=== PATIENT | male | born 1945 | race Caucasian/White ===

== ENCOUNTER 2019-08-17 04:45 | Inpatient (IN) ==
[2019-08-10 17:56] LABS: Basophils # (Auto) 0.01 K/mcL (0.00-0.30); Basophils % (Auto) 0.1 % (0.0-2.0); Eosinophils # (Auto) 0.14 K/mcL (0.00-0.70); Eosinophils % (Auto) 1.5 % (0.0-7.0); Granulocytes % (Auto) 80.1 % (38.0-78.0); Hematocrit 42.7 % (40.1-51.0); Hemoglobin 13.6 g/dL (13.7-17.5); Lymphocytes # (Auto) 0.66 K/mcL (1.50-4.80); Lymphocytes % (Auto) 6.8 % (15.5-49.0); Mean Cell Volume 88.8 fL (80.0-100.0); Mean Corpuscular HGB Conc 31.9 g/dL (31.0-36.0); Mean Platelet Volume 10.7 fL (7.4-10.4); Monocytes # (Auto) 1.11 K/mcL (0.10-0.90); Monocytes % (Auto) 11.5 % (1.0-12.0); Platelet Count 201 K/mcL (140-440); RBC 4.81 M/mcL (4.63-6.08); WBC 9.7 K/mcL (4.50-11.00)
[2019-08-10 18:08] LABS: Estimated Average Glucose(eAG) 108 mg/dL; Hemoglobin A1C 5.4 % HGB (4.0-6.0)
[2019-08-10 18:10] LABS: ALT/SGPT 17 U/l (0-40); AST/SGOT 12 U/l (0-37); Albumin/Globulin Ratio 1.2 (1.0-2.3); Alkaline Phosphatase 80 U/L (39-117); Bilirubin,Total 0.3 mg/dL (0.0-1.0); Blood Urea Nitrogen 23 mg/dl (8-23); Calcium 9.6 mg/dl (8.6-10.4); Carbon Dioxide 23 mmol/L (22-30); Chloride 99 mmol/L (96-108); Globulin 3.3 gm/dL (2.2-3.7); Glomerular Filtration Rate 93; Glucose 116 mg/dL (70-105)
[2019-08-17] MEDS ORDERED: SCOPOLAMINE 1 PATCH PATCH TOPICAL PRN (05:00)
[2019-08-17] MEDS ORDERED: IPRATROPIUM/ALBUTEROL 3 ML AMPUL.NEB NEB PRN ×2 (05:00→08:49)
[2019-08-17] MEDS ORDERED: ceFAZolin 2 GM in DEXTROSE 5% IN WATER 50 ML IV SCH (06:00)
[2019-08-17] MEDS ORDERED: MIDAZOLAM 5 MG/5 ML VIAL IV ONE (07:36)
[2019-08-17] MEDS ORDERED: fentaNYL 100 MCG/2 ML VIAL IV ONE (07:36)
[2019-08-17] MEDS ORDERED: PROPOFOL 200 MG/20 ML VIAL IV ONE (07:36)
[2019-08-17] MEDS ORDERED: GLYCOPYRROLATE 0.2 MG/ML VIAL IV ONE (07:36)
[2019-08-17] MEDS ORDERED: LIDOCAINE HCL/PF 100 MG/5 ML SYRINGE IV ONE (07:36)
[2019-08-17] MEDS ORDERED: ONDANSETRON 4 MG/2 ML VIAL IV ONE (07:36)
[2019-08-17] MEDS ORDERED: DEXAMETHASONE 10 MG/ML VIAL IV ONE (07:36)
[2019-08-17] MEDS ORDERED: METOPROLOL TARTRATE 5 MG/5 ML VIAL IV ONE (07:36)
[2019-08-17] MEDS ORDERED: KETAMINE 100 MG/ML ML IV ONE (07:36)
[2019-08-17] MEDS ORDERED: METHYLENE BLUE 50 MG/10 ML AMPUL INJ ONE (08:04)
[2019-08-17] MEDS ORDERED: NALOXONE HCL 0.4 MG/ML VIAL IV PRN (08:49)
[2019-08-17] MEDS ORDERED: fentaNYL 100 MCG/2 ML VIAL IV PRN (08:49)
[2019-08-17] MEDS ORDERED: FLUMAZENIL 0.1 MG/ML ML IV PRN (08:49)
[2019-08-17] MEDS ORDERED: LACTATED RINGERS 250 ML IV PRN (08:49)
[2019-08-17] MEDS ORDERED: LACTATED RINGERS 1,000 ML IV SCH (09:00)
--- NOTE | 2019-08-17 09:08 | Brief Operative Note ---
Date of procedure: 08/17/19 Pre-op diagnosis: Sacral pressure ulcer, indeterminate Post-op diagnosis: other (Grade IV sacral pressure ulcer) Procedure: Excision of sacral ulcer with partial ostectomy, bilateral gluteus muscle flap closure Grafts/Implants: No Anesthesia: conscious sedation Findings: Ulcer goes all the way down to bone. No pus. Distal sacral bone spongy Complications: none Surgeon: Shubham Ernst Specimens Removed/Pathology: other (Post irrigation culture of sacral bone to microbiology) Condition: stable Disposition: PACU
[2019-08-17] MEDS ORDERED: BACITRACIN TOPICAL OINT 15 GM TUBE TOPICAL ONE (09:12)
--- NOTE | 2019-08-17 09:42 | Internal Medicine Consult Note ---
Medical - CN: HPI - Data of Consult Primary Care Provider: Saleem Bedoya - Consult Narrative Reason for consult: Postoperative management of medical issues History of present illness: Mr. Abdul is a 74 year old very pleasant gentleman with a history of T4 paraplegia since 2016 and resultant sacral decubitus ulcer that he has been battling for the last 4 years with multiple hospitalizations/surgeries and extending up to sacrum with resultant osteomyelitis. He also underwent left colostomy, suprapubic catheter placement. Additionall patient carries history of insulin-dependent diabetes, gout, HTN, prostate cancer. Patient today underwent sacral ulcer excision with partial ostectomy and bilateral gluteus muscle flap closure by Dr. Ernst. Postoperatively patient was admitted to enable placement to the [facility] for continued postoperative wound care Hospitalist service was consulted for management of pre-existing medical issues while patient will be undergoing postoperative care under surgery. At the time evaluation patient is alert and oriented. He was able to answer most of the question and endorse a complex history as above. He denies lightheadedness dizziness headache, fever. He has no sensations below the waist. He lives with his . Denies alcohol or smoking Review of systems 10 point review system was attempted and is negative except for ones discussed above CC: Shubham Ernst Medical - CN: [facility] Medical history: Paraplegic spinal paralysis (Chronic ~2016) Renal calculi (Chronic) History of prostate cancer (Chronic) IDDM (insulin dependent diabetes mellitus) (Chronic) Pressure ulcer of coccygeal region (Chronic) Prostate cancer (Chronic) Vertigo (Chronic) Type II diabetes mellitus (Chronic) Osteomyelitis (Chronic) Surgical History History of cardiac pacemaker in situ (Chronic) History of colostomy (Chronic) History of lithotripsy (Chronic) Renal History of lumbar fusion (Chronic) History of prostatectomy (Chronic) Suprapubic Family History Other No pertinent family history Social History marital status: smoking status: Never smoker alcohol intake frequency: a few times a week Medical - CN: Meds Home Medications Medication Instructions Recorded Confirmed Type baclofen 10 mg tablet 5 mg PO TID tab 04/07/19 08/17/19 History magnesium oxide 400 mg PO BID 04/07/19 08/17/19 History metformin 500 mg tablet 1,000 mg PO BID tab 04/07/19 08/17/19 History omeprazole 20 mg capsule,delayed 20 mg PO QDAY 04/07/19 08/17/19 History release solifenacin 5 mg tablet 5 mg PO QDAY 04/07/19 08/17/19 History acetaminophen 325 mg capsule 650 mg PO QID PRN 04/09/19 08/17/19 History apixaban 5 mg tablet 5 mg PO BID tab 04/09/19 08/17/19 History colchicine 0.6 mg tablet 0.6 mg PO QDAY tab 04/09/19 08/17/19 History digoxin 125 mcg (0.125 mg) tablet 125 mcg PO QDAY tab 04/09/19 08/17/19 History duloxetine 60 mg capsule,delayed 60 mg PO QDAY cap 04/09/19 08/17/19 History release hydrocodone 10 mg-acetaminophen 1 tab PO Q4-6H PRN 04/09/19 08/17/19 History 325 mg tablet meclizine 25 mg tablet 12.5 - 25 mg PO QDAY PRN 04/09/19 08/17/19 History pgvviecmewic-gbnlyqto-dzobfx 1 tab PO QDAY 04/09/19 08/17/19 History potassium chloride 20 mEq 20 meq PO BID tab 04/09/19 08/17/19 History tablet,extended release(part/cryst) tramadol 50 mg tablet 50 - 100 mg PO Q8HP PRN 04/09/19 08/17/19 History Calcium Carbonate/Simethicone 1 tab PO PRN PRN 08/10/19 08/17/19 History [[place] Heartburn+Gas] Citric AC/Gluconolact/Mag Carb 30 ml IR UD 08/10/19 08/17/19 History [Renacidin Irrigation Solution] Diclofenac Sodium [Voltaren] 1 gm TOPICAL TIDP PRN 08/10/19 08/17/19 History Econazole Nitrate 1 gm TP BID 08/10/19 08/17/19 History Hydrochlorothiazide [Oretic] 12.5 mg PO DAILY 08/10/19 08/17/19 History Hydrocortisone Crm 2.5% [Hc Crm 1 dose TOPICAL BID 08/10/19 08/17/19 History 2.5%] Ondansetron [Zofran ODT] 8 mg SL Q8HP PRN 08/10/19 08/17/19 History Simethicone [Gas-X] 125 mg PO TIDP PRN 08/10/19 08/17/19 History Allergies Allergy/AdvReac Type Severity Reaction Status Date / Time No Known Drug Allergies Allergy Unverified 05/25/19 15:21 Medical - CN: Exam - Constitutional Vitals: Temp Pulse Resp BP Pulse Ox 98.9 F 93 H 15 94/68 99 08/17/19 09:28 08/17/19 09:28 08/17/19 09:28 08/17/19 09:28 08/17/19 09:28 General appearance: no acute distress Exam: Head normocephalic Oral cavity dry Alert and oriented Eye-movement symmetrical Nonlabored breathing Abdomen colostomy left lower quadrant Suprapubic catheter Lower extremity disuse atrophy No sinus clubbing or joint swelling Skin no suspicious lesion Psych alert cooperative Neuro T4 paraplegia no acute changes Medical - CN: Result - Labs CBC & Chem 7: 08/18/19 05:57 08/18/19 05:57 Medical - CN: A/P (1) Pressure ulcer of coccygeal region Status: Chronic Assessment and plan: * Status post sacral ulcer excision/partial ostectomy/bilateral gluteal muscle flap closure by surgery. Postoperative care/pain management as per surgery * Sacral osteomyelitis status post ostectomy. Initiate oral Levaquin, de- escalation based on wound culture results. Hospitalist consult for management of medical issues as below * T4 paraplegia status post colostomy/suprapubic catheter. Continue daily care/offloading. * Insulin-dependent diabetes continue basal panel insulin/metformin/CC diet * History of gout continue colchicine * Hypertension continue thiazide * GERD continue PPI * Chronic pain and spasm continue baclofen. Plan * Offloading and postoperative care as per surgery * Pre-existing medical condition management home meds * oral Levaquin for 7 days * PT OT nutrition support * Discharge planning-SNF as per surgery for continued postoperative wound care
[2019-08-17] MEDS ORDERED: ACETAMINOPHEN 325 MG TABLET PO PRN (09:46)
[2019-08-17] MEDS ORDERED: traMADol 50 MG TABLET PO PRN (09:46)
[2019-08-17] MEDS ORDERED: ONDANSETRON 4 MG ODT TABLET SL PRN (09:46)
[2019-08-17] MEDS ORDERED: HYDROcodone/APAP 10/325MG TABLET PO PRN (09:46)
[2019-08-17 11:29] LABS: Hematocrit 40.6 % (40.1-51.0); Hemoglobin 12.8 g/dL (13.7-17.5); Mean Cell Volume 88.8 fL (80.0-100.0); Mean Corpuscular HGB Conc 31.5 g/dL (31.0-36.0); Mean Platelet Volume 10.5 fL (7.4-10.4); Platelet Count 222 K/mcL (140-440); RBC 4.57 M/mcL (4.63-6.08); Red Cell Distribution Width 15.9 % (11.5-14.5); WBC 10.3 K/mcL (4.50-11.00)
[2019-08-17 11:48] LABS: ALT/SGPT 20 U/l (0-40); AST/SGOT 15 U/l (0-37); Albumin 3.5 gm/dL (3.2-5.2); Alkaline Phosphatase 63 U/L (39-117); Bilirubin,Direct < 0.2 mg/dL (0.0-0.3); Bilirubin,Total 0.2 mg/dL (0.0-1.0); Blood Urea Nitrogen 17 mg/dl (8-23); Calcium 9.4 mg/dl (8.6-10.4); Carbon Dioxide 23 mmol/L (22-30); Chloride 103 mmol/L (96-108); Globulin 3.5 gm/dL (2.2-3.7); Glomerular Filtration Rate 99; Glucose 123 mg/dL (70-105); Lactate Dehydrogenase 152 U/L (94-250); Phosphorous 2.6 mg/dL (2.7-4.5); Triglycerides 103 mg/dl (<150); Uric Acid 5.1 mg/dL (2.5-8.0)
[2019-08-17 11:56] LABS: Band Neutrophils % 3 % (0-10); Eosinophils % (Manual) 2 % (0-7); Lymphocytes % 4 % (15-49); Monocytes % (Manual) 1 % (1-12); Platelet Estimate NORMAL (NORMAL); RBC Morphology NORMAL (NORMAL); Segmented Neutrophils % 90 % (38-78)
[2019-08-17] MEDS: LEVOFLOXACIN 750 MG TABLET PO SCH (13:31)
[2019-08-17] MEDS: BACLOFEN 10 MG TABLET PO SCH ×2 (16:04→20:45)
[2019-08-17] MEDS: DIGOXIN 125 MCG TABLET PO SCH (16:05)
[2019-08-17 17:11] LABS: Appearance,Urine CLOUDY; Bacteria,Urine MANY /hpf (0); Bilirubin,Urine NEG (NEG); Color,Urine YELLOW; Culture Indicated,Urine YES; Glucose,Urine (UA) 50 mg/dL (NEG); Ketones,Urine NEG (NEG); Leukocyte Esterase,Urine 500 /uL (NEG); Mucus,Urine MOD /hpf (0); Nitrate,Urine NEG (NEG); Protein,Urine NEG (NEG); Specific Gravity,Urine 1.018 (1.000-1.035); Urine Amorphous Crystals FEW /hpf (0); Urine Blood NEG mg/dL (<0.03); Urine RBC 2 /hpf (0-1); Urine Squamous Epithelial Cell 2 /hpf (0-4); Urine WBC 37 /hpf (0-4); Urobilinogen,Urine NEG (NEG)
[2019-08-17] MEDS: metFORMIN 500 MG TABLET PO SCH (18:05)
[2019-08-17] MEDS: POTASSIUM CHLORIDE 20 MEQ TABLET PO SCH (18:06)
[2019-08-17] MEDS: BACITRACIN TOPICAL OINT 15 GM TUBE TOPICAL SCH (20:45)
[2019-08-17] MEDS: MAGNESIUM OXIDE 400 MG TABLET PO SCH (20:45)
[2019-08-18 07:07] LABS: Hematocrit 36.5 % (40.1-51.0); Hemoglobin 11.5 g/dL (13.7-17.5); Mean Cell Volume 89.2 fL (80.0-100.0); Mean Corpuscular HGB Conc 31.5 g/dL (31.0-36.0); Platelet Count 246 K/mcL (140-440); RBC 4.09 M/mcL (4.63-6.08); Red Cell Distribution Width 15.8 % (11.5-14.5); WBC 10.9 K/mcL (4.50-11.00)
[2019-08-18 07:32] LABS: Bilirubin,Direct < 0.2 mg/dL (0.0-0.3); Chloride 103 mmol/L (96-108)
[2019-08-18 07:33] LABS: ALT/SGPT 15 U/l (0-40); AST/SGOT 15 U/l (0-37); Albumin 3.2 gm/dL (3.2-5.2); Alkaline Phosphatase 59 U/L (39-117); Bilirubin,Total 0.3 mg/dL (0.0-1.0); Blood Urea Nitrogen 17 mg/dl (8-23); Calcium 8.7 mg/dl (8.6-10.4); Carbon Dioxide 20 mmol/L (22-30); Globulin 3.2 gm/dL (2.2-3.7); Glomerular Filtration Rate 99; Glucose 147 mg/dL (70-105); Lactate Dehydrogenase 167 U/L (94-250); Phosphorous 2.2 mg/dL (2.7-4.5); Triglycerides 74 mg/dl (<150); Uric Acid 5.7 mg/dL (2.5-8.0)
[2019-08-18] MEDS: OMEPRAZOLE 20 MG CAPSULE PO SCH (07:34)
[2019-08-18] MEDS: metFORMIN 500 MG TABLET PO SCH ×2 (07:34→17:04)
[2019-08-18] MEDS: POTASSIUM CHLORIDE 20 MEQ TABLET PO SCH ×2 (07:34→17:04)
[2019-08-18] MEDS: MAGNESIUM OXIDE 400 MG TABLET PO SCH ×2 (08:41→20:24)
[2019-08-18] MEDS: COLCHICINE 0.6 MG TABLET PO SCH (08:41)
[2019-08-18] MEDS: BACLOFEN 10 MG TABLET PO SCH ×3 (08:42→20:24)
[2019-08-18] MEDS: HYDROCHLOROTHIAZIDE 12.5 MG CAPSULE PO SCH (08:42)
[2019-08-18] MEDS: LEVOFLOXACIN 750 MG TABLET PO SCH (08:42)
[2019-08-18] MEDS: DULoxetine 30 MG CAPSULE PO SCH (08:42)
[2019-08-18] MEDS: BACITRACIN TOPICAL OINT 15 GM TUBE TOPICAL SCH ×2 (08:45→20:25)
[2019-08-18 08:47] LABS: Eosinophils % (Manual) 1 % (0-7); Lymphocytes % 9 % (15-49); Monocytes % (Manual) 3 % (1-12); Platelet Estimate NORMAL (NORMAL); RBC Morphology NORMAL (NORMAL); Segmented Neutrophils % 87 % (38-78)
--- NOTE | 2019-08-18 09:00 | Operative Note ---
DATE OF OPERATION: 08/17/2019 PREOPERATIVE DIAGNOSIS: Sacral ulcer, indeterminate depth. POSTOPERATIVE DIAGNOSIS: Grade IV sacral pressure ulcer. PROCEDURE PERFORMED: 1. Excision of sacral pressure ulcer with partial ostectomy of distal and posterior sacrum. 2. Bilateral gluteus giovanni muscle flap closure. SURGEON: Shubham Ernst M.D. CLINICAL DOCUMENT IMPROVEMENT EDUCATOR: None. ANESTHESIA: Conscious sedation. COMPLICATIONS: None. DRAINS: Two 7 mm CANDY drains were placed. SPECIMENS: A post-irrigation culture was sent to Microbiology. INDICATIONS: The patient is a 74-year-old male with stable medical history. He has been a T4 paraplegic for about 4 years now. He developed a sacral pressure sore, in addition to a couple others which have healed. The sacral ulcer has failed nonoperative management and operative treatment to close the defect is currently indicated. DESCRIPTION OF PROCEDURE: With the patient identified in the holding area, the planned procedure was discussed with him. He wished to proceed and consented freely. Two grams of Ancef were given IV. The patient was brought into the operating room. He was placed prone on the operating table with all of his pressure points adequately covered. The patient's entire buttock and perineal area was then prepped and draped out sterilely. The ulcer was then outlined. The ulcer itself measured about 7 x 3.5 cm with a depth of about 3.5 cm. The entire depth of the ulcer was painted blue with blue dye. The ulcer was then excised using a #15 blade to incise around the entire ulcer to present with fresh, healthy skin. Once through the skin, electrocautery was used for dissection. It was carried out down to the sacral bone. The bone was then debrided using a rongeur and uterine curettes. The very distal sacral bone was somewhat soft and poor quality. The bone was debrided back until healthy, hard, firm bone was reached. The wounds were then irrigated out with about 3 liters of warm sterile lactated Ringer's solution. A clean rongeur was then used to obtain a post-irrigation culture, and this was sent to Microbiology. Having been content with the wound debridement, the bone was exposed at the base. Muscle flap would be in the patient's best interest. A unilateral gluteus muscle flap would reach just over residential. Bilateral flaps would be necessary to exact adequate closure of the wound. The muscle was then from the skin posteriorly and from the bone anteriorly. The muscle was of good quality. It had excellent bleeding and contraction and appeared healthy. The left-sided muscle was advanced first. Once just over the midline, the right side. muscle was advanced. Electrocautery was used for hemostasis and for the dissection. Having been content with the procedure, two 7 mm CANDY drains were placed. One going into the deep wound and then one between the muscle and the skin. The drains were secured with 3-0 nylon. The muscle was closed with interrupted sutures of 2-0 Vicryl. The depth of the suture was secured to the deeper soft tissue to help close off the defect. Once the muscle was approximated, the skin was then closed over the second drain with interrupted 0 Monocryl sutures to approximate the dermis and the deep fascia. The skin was then finally closed with horizontal mattress sutures of 3-0 nylon with multiple surgical clips. The total length of closure was about 8.5 cm. The wounds were then washed free of debris. Bacitracin was placed over the incision and around the drains. Drain sponges were used as well. The patient was then washed free and rolled directly onto his air bed. He was taken to the recovery room in stable condition. There were no complications. The sponge and needle counts were correct. The patient tolerated the procedure well. MALLORY:[email or web address] Job ID: [id number] Doc ID: [id number] Shubham Ernst MD
--- NOTE | 2019-08-18 09:58 | Internal Med Progress Note ---
Medical - PN: Subj Patient information: Note initiated : 08/18/19 at 9:55 am Service Date, if different from initiated Date: [] Patient: Omer Abdul 74 y/o M admitted on 08/17/19 for Excision and Flap Closure of Sacral Pressure Ulcer. Chief Complaint: [] Interval history: Mr. Abdul is a 74 year old very pleasant gentleman with a history of T4 paraplegia since 2016 and resultant sacral decubitus ulcer that he has been battling for the last 4 years with multiple hospitalizations/surgeries and extending up to sacrum with resultant osteomyelitis. He also underwent left colostomy, suprapubic catheter placement. Additionall patient carries history of insulin-dependent diabetes, gout, HTN, prostate cancer. Patient today underwent sacral ulcer excision with partial ostectomy and bilateral gluteus muscle flap closure by Dr. Ernst. Postoperatively patient was admitted to enable placement to the halfway home for continued postoperative wound care Hospitalist service was consulted for management of pre-existing medical issues while patient will be undergoing postoperative care under surgery. At the time evaluation patient is alert and oriented. He was able to answer most of the question and endorse a complex history as above. He denies lightheadedness dizziness headache, fever. He has no sensations below the waist. He lives with his . Denies alcohol or smoking 08/17-patient had a rough mood today. Unhappy with the nursing care. Await SNF placement. Discussed plan of care including antibiotic for 7 days. Await culture results. No overnight fever chills. Tolerating diet - Constitutional Vitals: Vital Signs Temp Pulse Resp BP Pulse Ox 97.9 F 73 18 114/79 99 08/18/19 07:37 08/18/19 07:37 08/18/19 07:52 08/18/19 07:37 08/18/19 07:37 Period Temp Pulse Resp BP Sys/Zimmerman Pulse Ox Last 24 Hr 97.4 F-98.1 F 65-112 93-125/65-82 92-99 Intake and Output 08/17/19 08/18/19 08/18/19 21:59 05:59 13:59 Intake Total 900 725 Output Total 700 1550 Balance 200 -825 Weight 194 lb 9.6 oz Intake & Output: Intake & Output 08/17/19 08/18/19 08/18/19 21:59 05:59 13:59 Intake Total 900 725 Output Total 700 1550 Balance 200 -825 Weight 194 lb 9.6 oz Intake: IV 50 Ancef 2 gm In Dextrose 5% in 50 Water 50 ml @ 100 mls/hr IV PREOP LEIGH Rx#:[id number] Oral 900 675 Output: Drainage 25 CANDY #1 15 CANDY #2 10 Urine Catheter Amount 700 1525 Other: Meal Dinner Percent of Meal Consumed 75% Feeding Ability Independent Urine Appearance Cloudy Cloudy Suprapubic Cloudy Cloudy Urine Color Dark Yellow Bright Yellow Suprapubic Bright Yellow Bright Yellow Urine Odor Normal Suprapubic Normal Stool Size Small Stool Color Brown Stool Consistency Formed General appearance: no acute distress Exam: Alert oriented Anxious Nonlabored breathing Atrial fibrillation Colostomy and suprapubic catheter Medical - PN: Obj Da - Labs CBC & Chem 7: 08/18/19 05:57 08/18/19 05:57 Labs: Abnormal Lab Results 08/18/19 08/18/19 08/17/19 05:57 05:57 16:12 RBC 4.09 L Hgb 11.5 L Hct 36.5 L RDW 15.8 H MPV Seg Neutrophils % 87 H Lymphocytes % 9 L Carbon Dioxide 20 L Creatinine 0.6 L Glucose 147 H Phosphorus 2.2 L Urine Glucose (UA) 50 A Ur Leukocyte Esterase 500 A Urine RBC 2 H Urine WBC 37 H Amorphous Crystals Few A Urine Bacteria Many A 08/17/19 08/17/19 10:00 10:00 RBC 4.57 L Hgb 12.8 L Hct RDW 15.9 H MPV 10.5 H Seg Neutrophils % 90 H Lymphocytes % 4 L Carbon Dioxide Creatinine 0.6 L Glucose 123 H Phosphorus 2.6 L Urine Glucose (UA) Ur Leukocyte Esterase Urine RBC Urine WBC Amorphous Crystals Urine Bacteria Meds: Medications Acetaminophen (Tylenol) 650 mg PO QIDP PRN PRN Reason: Pain Hydrocodone Bitart/Acetaminophen ([place] 10/325mg) 1 tab PO Q4-6HP PRN; Protocol PRN Reason: Pain Apixaban (Eliquis) 5 mg PO BID [facility] Bacitracin (Bacitracin Topical Oint) 1 dose TOPICAL BID [facility] Last Admin: 08/18/19 08:45 Dose: 1 dose Documented by: Baclofen (Lioresal) 5 mg PO TID [facility] Last Admin: 08/18/19 08:42 Dose: 5 mg Documented by: Colchicine (Colcrys) 0.6 mg PO DAILY [facility] Last Admin: 08/18/19 08:41 Dose: 0.6 mg Documented by: Digoxin (Lanoxin) 125 mcg PO DAILY@1400 [facility] Last Admin: 08/17/19 16:05 Dose: 125 mcg Documented by: Duloxetine HCl (Cymbalta) 60 mg PO DAILY [facility] Last Admin: 08/18/19 08:42 Dose: 60 mg Documented by: Hydrochlorothiazide (Oretic) 12.5 mg PO DAILY [facility] Last Admin: 08/18/19 08:42 Dose: 12.5 mg Documented by: Levofloxacin (Levaquin) 750 mg PO DAILY [facility]; Protocol Last Admin: 08/18/19 08:42 Dose: 750 mg Documented by: Magnesium Oxide (Magnesium Oxide) 400 mg PO BID [facility] Last Admin: 08/18/19 08:41 Dose: 400 mg Documented by: Metformin HCl (Glucophage) 1,000 mg PO BID[facility] Last Admin: 08/18/19 07:34 Dose: 1,000 mg Documented by: Omeprazole (Prilosec) 20 mg PO ACB [facility] Last Admin: 08/18/19 07:34 Dose: 20 mg Documented by: Ondansetron HCl (Zofran Odt) 8 mg SL Q8HP PRN PRN Reason: Nausea Solifenacin Succinate 5 Mg Tablet 1 dose PO DAILY [facility] Last Admin: 08/18/19 08:46 Dose: Not Given Documented by: Potassium Chloride (Kdur) 20 meq PO BIDCC [facility] Last Admin: 08/18/19 07:34 Dose: 20 meq Documented by: Tramadol HCl (Ultram) 50 - 100 mg PO Q8HP PRN PRN Reason: Pain Medical - PN: A/P - Time Spent With Patient Total time spent is greater than 50% in coordination of care (as documented) at patient's floor/unit and/or counseling patient: 25 - 35 minutes (1) Pressure ulcer of coccygeal region Status: Chronic Assessment and plan: * Status post sacral ulcer excision/partial ostectomy/bilateral gluteal muscle flap closure by surgery. Postop day 1. Continue care/pain management as per surgery * Sacral osteomyelitis status post ostectomy. Continue oral Levaquin, de- escalation based on wound culture results. Hospitalist consult for management of medical issues as below * T4 paraplegia status post colostomy/suprapubic catheter. Continue daily care/offloading. * Insulin-dependent diabetes continue basal panel insulin/metformin/CC diet * History of atrial fibrillation currently on digoxin rate controlled. Restart apixaban for CVA prophylaxis * Complicated hardware related UTI-on antibiotic coverage. * History of gout continue colchicine * Hypertension continue thiazide * GERD continue PPI * Chronic pain and spasm continue baclofen. * Anxiety disorder continue Cymbalta * Prophylaxis apixaban Plan * Offloading and postoperative care as per surgery * Pre-existing medical condition management home meds * oral Levaquin for 7 days * Restart apixaban for CVA prophylaxis * PT OT nutrition support * Discharge planning-SNF as per surgery for continued postoperative wound care Current Visit: No Medical - PN: Qual - VTE Deep Vein Thrombosis/Pulmonary Embolism Present on Admission: No
[2019-08-18] MEDS: DIGOXIN 125 MCG TABLET PO SCH (14:46)
[2019-08-18] MEDS: APIXABAN 5 MG TABLET PO SCH (20:24)
[2019-08-19] MEDS: OMEPRAZOLE 20 MG CAPSULE PO SCH (07:01)
[2019-08-19 07:14] LABS: Hematocrit 36.4 % (40.1-51.0); Hemoglobin 11.6 g/dL (13.7-17.5); Mean Cell Volume 87.5 fL (80.0-100.0); Mean Corpuscular HGB Conc 31.9 g/dL (31.0-36.0); Mean Platelet Volume 10.1 fL (7.4-10.4); Platelet Count 235 K/mcL (140-440); RBC 4.16 M/mcL (4.63-6.08); Red Cell Distribution Width 16.2 % (11.5-14.5); WBC 6.9 K/mcL (4.50-11.00)
[2019-08-19 07:48] LABS: ALT/SGPT 21 U/l (0-40); AST/SGOT 16 U/l (0-37); Albumin 3.2 gm/dL (3.2-5.2); Albumin/Globulin Ratio 0.9 (1.0-2.3); Alkaline Phosphatase 61 U/L (39-117); Bilirubin,Direct < 0.2 mg/dL (0.0-0.3); Bilirubin,Total 0.2 mg/dL (0.0-1.0); Blood Urea Nitrogen 18 mg/dl (8-23); Carbon Dioxide 21 mmol/L (22-30); Chloride 105 mmol/L (96-108); Globulin 3.4 gm/dL (2.2-3.7); Glomerular Filtration Rate 99; Glucose 98 mg/dL (70-105); Lactate Dehydrogenase 142 U/L (94-250); Triglycerides 110 mg/dl (<150); Uric Acid 6.3 mg/dL (2.5-8.0)
[2019-08-19 07:52] LABS: Phosphorous 3.3 mg/dL (2.7-4.5)
[2019-08-19] MEDS: POTASSIUM CHLORIDE 20 MEQ TABLET PO SCH ×2 (09:26→17:24)
[2019-08-19] MEDS: MAGNESIUM OXIDE 400 MG TABLET PO SCH ×2 (09:27→20:55)
[2019-08-19] MEDS: BACLOFEN 10 MG TABLET PO SCH ×3 (09:27→20:55)
[2019-08-19] MEDS: DULoxetine 30 MG CAPSULE PO SCH (09:27)
[2019-08-19] MEDS: metFORMIN 500 MG TABLET PO SCH ×2 (09:27→17:23)
[2019-08-19] MEDS: LEVOFLOXACIN 750 MG TABLET PO SCH (09:27)
[2019-08-19] MEDS: COLCHICINE 0.6 MG TABLET PO SCH (09:27)
[2019-08-19] MEDS: APIXABAN 5 MG TABLET PO SCH ×2 (09:28→20:55)
[2019-08-19] MEDS: BACITRACIN TOPICAL OINT 15 GM TUBE TOPICAL SCH ×2 (09:28→20:55)
[2019-08-19] MEDS: HYDROCHLOROTHIAZIDE 12.5 MG CAPSULE PO SCH (09:28)
[2019-08-19 11:01] LABS: Anisocytosis 1+ (NONE SEEN); Eosinophils % (Manual) 1 % (0-7); Hypochromasia 1+ (NONE SEEN); Lymphocytes % 16 % (15-49); Monocytes % (Manual) 8 % (1-12); Platelet Estimate NORMAL (NORMAL); RBC Morphology ABNORM (NORMAL); Segmented Neutrophils % 75 % (38-78)
[2019-08-19] MEDS: DIGOXIN 125 MCG TABLET PO SCH (14:57)
--- NOTE | 2019-08-20 00:10 | Progress Note ---
DATE OF VISIT 08/18/2019 HISTORY: Mr. Abdul is postop day #1, status post excision and flap closure of sacral pressure sore. He is in a bad mood this morning as he had leakage from his suprapubic catheter. The nursing staff has been trying to work with him. He is not having any pain. No significant spasms. He is currently afebrile. His T-max is 98.6. Drain output is about 10 to 20 mL per drain in the last 24 hours. His incision is clean and dry. There is no evidence of infection. He has a pad over the incision, but it is not causing any pressure or irregularities. His blood work demonstrates stable hemoglobin and hematocrit postop. Cultures are pending at this time. IMPRESSION: A 74-year-old male, T4 paraplegic, 1 day status post flap. He is really doing very well. He has had some bad experiences with previous hospitalizations. I talked to the nursing staff and I spoke with the patient to try and see if we can find some common ground. The patient was given a chance to ask questions and we talked about continuing his current care until stable and then transferring him to a nursing facility. I will plan to see him back tomorrow morning early or sooner if any problems. MALLORY:artem Job ID: [id number] Doc ID: [id number] Shubham Ernst MD
--- NOTE | 2019-08-20 00:23 | Progress Note ---
DATE OF VISIT 08/19/2019 HISTORY: Mr. Abdul is now postoperative day #2, status post excision of a grade IV sacral pressure sore and flap closure. He is doing a little bit better today. He continues not to have any pain. There has not been any obvious leakage from his SP catheter. His wounds have been kept dry. His T-max was 98.0. His vital signs are otherwise stable. His surgical site, there is no ABD pad over the site. The incision looks good. The upper part of the incision looks like it is being rubbed on by the mesh patties. There is no evidence of infection and there is really no kala breakdown. Cultures demonstrate pseudomonas in his urine. No cultures have grown out from the wound as of yet. He is currently on day #2 of Levaquin. His other lab work demonstrates stable hemoglobin and hematocrit. No other significant findings are present. IMPRESSION: Healthy, stable male, now postoperative day #2, status post flap closure of chronic ulcer. He is really doing very well. We are planning to discontinue his local care, waiting for the final cultures to come back. He is on Levaquin. He is on support for his chronic atrial fibrillation, which has not been symptomatic since he has been here. The patient was given a chance to ask questions. He understands that once in the residential facility, we will plan to keep him at least until his drains output is sufficient that we can remove them and that his is comfortable with his care at home since he lives quite [place] bit of ways from the local area. He was given a chance to ask questions and I will plan to see him back tomorrow. MALLORY:hn Job ID: [id number] Doc ID: [id number] Shubham Ernst MD
[2019-08-20 06:52] LABS: Hematocrit 38.6 % (40.1-51.0); Hemoglobin 11.9 g/dL (13.7-17.5); Mean Cell Volume 91.5 fL (80.0-100.0); Mean Corpuscular HGB Conc 30.8 g/dL (31.0-36.0); Platelet Count 249 K/mcL (140-440); RBC 4.22 M/mcL (4.63-6.08); Red Cell Distribution Width 16.3 % (11.5-14.5); WBC 8.9 K/mcL (4.50-11.00)
[2019-08-20 07:30] LABS: ALT/SGPT 18 U/l (0-40); AST/SGOT 12 U/l (0-37); Albumin 3.3 gm/dL (3.2-5.2); Alkaline Phosphatase 67 U/L (39-117); Bilirubin,Direct < 0.2 mg/dL (0.0-0.3); Bilirubin,Total 0.2 mg/dL (0.0-1.0); Blood Urea Nitrogen 16 mg/dl (8-23); Calcium 9.2 mg/dl (8.6-10.4); Carbon Dioxide 19 mmol/L (22-30); Chloride 102 mmol/L (96-108); Globulin 3.3 gm/dL (2.2-3.7); Glomerular Filtration Rate 93; Glucose 143 mg/dL (70-105); Lactate Dehydrogenase 155 U/L (94-250); Triglycerides 176 mg/dl (<150); Uric Acid 6.4 mg/dL (2.5-8.0)
[2019-08-20 07:33] LABS: Phosphorous 2.4 mg/dL (2.7-4.5)
[2019-08-20] MEDS: OMEPRAZOLE 20 MG CAPSULE PO SCH (07:34)
[2019-08-20 07:59] LABS: Anisocytosis 1+ (NONE SEEN); Band Neutrophils % 1 % (0-10); Lymphocytes % 18 % (15-49); Monocytes % (Manual) 8 % (1-12); Platelet Estimate NORMAL (NORMAL); RBC Morphology ABNORM (NORMAL); Segmented Neutrophils % 73 % (38-78)
[2019-08-20] MEDS: COLCHICINE 0.6 MG TABLET PO SCH (08:37)
[2019-08-20] MEDS: metFORMIN 500 MG TABLET PO SCH (08:37)
[2019-08-20] MEDS: POTASSIUM CHLORIDE 20 MEQ TABLET PO SCH (08:37)
[2019-08-20] MEDS: BACLOFEN 10 MG TABLET PO SCH (08:38)
[2019-08-20] MEDS: HYDROCHLOROTHIAZIDE 12.5 MG CAPSULE PO SCH (08:39)
[2019-08-20] MEDS: APIXABAN 5 MG TABLET PO SCH (08:39)
[2019-08-20] MEDS: MAGNESIUM OXIDE 400 MG TABLET PO SCH (08:39)
[2019-08-20] MEDS: DULoxetine 30 MG CAPSULE PO SCH (08:42)
--- NOTE | 2019-08-20 09:08 | Discharge Summary ---
Medical - DS: Prov Patient information: Note initiated : 08/20/19 at 9:05 am Service Date, if different from initiated Date: [] Patient: Omer Abdul 74 y/o M admitted on 08/17/19 for Excision and Flap Closure of Sacral Pressure Ulcer. Chief Complaint: [] Date of admission: 08/17/19 04:45 Discharge date: 08/20/19 Primary care physician: Saleem Bedoya Consults: 08/17/19 07:24 Consult to Physician [CONS] Routine Comment: Consulting Provider: Esau Medeiros Reason For Exam: Physician to Consult 08/18/19 10:33 Consult to Physician [CONS] Routine Comment: Consulting Provider: Adriano Moore Reason For Exam: Physician to Consult Medical - DS: Meds - Discharge Medications Active and Home Medications: Home Medications baclofen 10 mg tablet 5 mg PO TID tab 04/07/19 [History Confirmed 08/17/19 Last Taken 08/16/19] magnesium oxide 400 mg PO BID 04/07/19 [History Confirmed 08/17/19 Last Taken 08/16/19] metformin 500 mg tablet 1,000 mg PO BID tab 04/07/19 [History Confirmed 08/17/19 Last Taken 08/17/19] omeprazole 20 mg capsule,delayed release 20 mg PO QDAY 04/07/19 [History Confirmed 08/17/19 Last Taken 08/16/19] solifenacin 5 mg tablet 5 mg PO QDAY 04/07/19 [History Confirmed 08/17/19 Last Taken 08/16/19] acetaminophen 325 mg capsule 650 mg PO QID PRN 04/09/19 [History Confirmed 08/17/19 Last Taken Unknown] apixaban 5 mg tablet 5 mg PO BID tab 04/09/19 [History Confirmed 08/17/19 Last Taken 08/14/19] colchicine 0.6 mg tablet 0.6 mg PO QDAY tab 04/09/19 [History Confirmed 08/17/19 Last Taken 08/16/19] digoxin 125 mcg (0.125 mg) tablet 125 mcg PO QDAY tab 04/09/19 [History Confirmed 08/17/19 Last Taken 08/17/19 02:00] duloxetine 60 mg capsule,delayed release 60 mg PO QDAY cap 04/09/19 [History Confirmed 08/17/19 Last Taken 08/17/19 02:00] hydrocodone 10 mg-acetaminophen 325 mg tablet 1 tab PO Q4-6H PRN 04/09/19 [History Confirmed 08/17/19 Last Taken Unknown] meclizine 25 mg tablet 12.5 - 25 mg PO QDAY PRN 04/09/19 [History Confirmed 08/17/19 Last Taken Unknown] hxketcqxriks-nbnmxorb-axroai 1 tab PO QDAY 04/09/19 [History Confirmed 08/17/19 Last Taken 08/16/19] potassium chloride 20 mEq tablet,extended release(part/cryst) 20 meq PO BID tab 04/09/19 [History Confirmed 08/17/19 Last Taken 08/16/19] tramadol 50 mg tablet 50 - 100 mg PO Q8HP PRN 04/09/19 [History Confirmed 08/17/19 Last Taken 08/16/19] Calcium Carbonate/Simethicone [[place] Heartburn+Gas] 1 tab PO PRN PRN 08/10/19 [History Confirmed 08/17/19 Last Taken 08/16/19] Citric AC/Gluconolact/Mag Carb [Renacidin Irrigation Solution] 30 ml IR UD 08/10/19 [History Confirmed 08/17/19 Last Taken 08/15/19] Diclofenac Sodium [Voltaren] 1 gm TOPICAL TIDP PRN 08/10/19 [History Confirmed 08/17/19 Last Taken Unknown] Econazole Nitrate 1 gm TP BID 08/10/19 [History Confirmed 08/17/19 Last Taken 08/16/19] Hydrochlorothiazide [Oretic] 12.5 mg PO DAILY 08/10/19 [History Confirmed 08/17/19 Last Taken 08/16/19] Hydrocortisone Crm 2.5% [Hc Crm 2.5%] 1 dose TOPICAL BID 08/10/19 [History Confirmed 08/17/19 Last Taken 08/16/19] Ondansetron [Zofran ODT] 8 mg SL Q8HP PRN 08/10/19 [History Confirmed 08/17/19 Last Taken Unknown] Simethicone [Gas-X] 125 mg PO TIDP PRN 08/10/19 [History Confirmed 08/17/19 Last Taken 08/16/19] Medical - DS: Hosp Hospital Course: Discharge diagnosis * Status post sacral ulcer excision/partial ostectomy/bilateral gluteal muscle flap closure by surgery. Postop day 2. Continue care/pain management as per surgery * Sacral osteomyelitis status post ostectomy/flap placement. Wound cultures c oag negative staph likely contaminant. No indication for treatment. Hospitalist consult for management of medical issues as below * T4 paraplegia status post colostomy/suprapubic catheter. Continue daily care/offloading. * DM type II continue metformin/CC diet * History of atrial fibrillation currently on digoxin rate controlled. 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 * Anxiety disorder continue Cymbalta Brief hospital course Mr. Abdul is a 74 year old very pleasant gentleman with a history of T4 paraplegia since 2016 and resultant sacral decubitus ulcer that he has been battling for the last 4 years with multiple hospitalizations/surgeries and extending up to sacrum with resultant osteomyelitis. He also underwent left colostomy, suprapubic catheter placement. Additionall patient carries history of insulin-dependent diabetes, gout, HTN, prostate cancer. Patient today underwent sacral ulcer excision with partial ostectomy and bilateral gluteus muscle flap closure by Dr. Ernst. Postoperatively patient was admitted to enable placement to the residential home for continued postoperative wound care Hospitalist service was consulted for management of pre-existing medical issues while patient will be undergoing postoperative care under surgery. At the time evaluation patient is alert and oriented. He was able to answer most of the question and endorse a complex history as above. He denies lightheadedness dizziness headache, fever. He has no sensations below the waist. He lives with his . Denies alcohol or smoking 08/17-patient had a rough mood today. Unhappy with the nursing care. Await SNF placement. Discussed plan of care including antibiotic for 7 days. Await culture results. No overnight fever chills. Tolerating diet 08/18-patient doing well. White count stable. No fever chills. Urine culture polymicrobial. Pseudomonas resistant to Levaquin. Likely colonizing contaminant. No significant pyuria. Hardware related. Wound culture coag negative staph cultures pending however treatment not indicated due to colonization. Discharge diagnosis: . - Time Spent with Patient Total time spent providing and/or coordinating discharge services: Greater than 30 minutes Medical - DS: Exam - Constitutional Vitals: Vital Signs Temp Pulse Resp BP Pulse Ox 08/20/19 08:00 98.7 F 104 H 12 104/66 96 08/20/19 05:07 98.6 F 89 16 123/85 98 08/20/19 00:30 98.3 F 97 H 16 114/76 96 08/19/19 20:40 99.0 F 88 16 88/53 96 08/19/19 15:28 98.3 F 104 H 12 92/66 94 08/19/19 11:56 98.6 F 94 H 12 97/68 95 Intake and Output 08/19/19 08/20/19 08/20/19 21:59 05:59 13:59 Intake Total 420 240 180 Output Total 870 400 Balance -450 -160 180 Intake: Oral 420 240 180 Output: Drainage 20 CANDY #1 10 CANDY #2 10 Urine Catheter Amount 850 400 Suprapubic 450 Other: Meal Dinner Breakfast Percent of Meal Consumed 100% 100% Feeding Ability Assist with Tray Set Up Urine Appearance Sediment Clear Stones/Calculi Suprapubic Sediment Stones/Calculi Urine Color Bright Yellow Bright Yellow Suprapubic Bright Yellow Urine Odor Normal Suprapubic Normal Stool Size Small Stool Color Brown Stool Consistency Soft # Bowel Movements 1 Weight 194 lb 9.6 oz Medical - DS: Data Labs on day of discharge: Labs from last 24 hours 08/20/19 08/20/19 08/19/19 05:26 05:26 05:46 WBC 8.9 RBC 4.22 L Hgb 11.9 L Hct 38.6 L MCV 91.5 MCH 28.2 MCHC 30.8 L RDW 16.3 H Plt Count 249 MPV 10.0 Total Counted 100 100 Seg Neutrophils % 73 75 Band Neutrophils % 1 Lymphocytes % 18 16 Monocytes % (Manual) 8 8 Eosinophils % (Manual) 1 Platelet Estimate Normal Normal RBC Morphology Abnorm A Abnorm A Hypochromasia 1+ A Anisocytosis 1+ A 1+ A Sodium 138 Potassium 4.3 Chloride 102 Carbon Dioxide 19 L Anion Gap 17.0 H BUN 16 Creatinine 0.7 GFR Calculation 93 Glucose 143 H Uric Acid 6.4 Calcium 9.2 Phosphorus 2.4 L Magnesium 1.8 Total Bilirubin 0.2 Direct Bilirubin < 0.2 GGT 26 AST 12 ALT 18 Alkaline Phosphatase 67 Lactate Dehydrogenase 155 Total Protein 6.6 Albumin 3.3 Globulin 3.3 Albumin/Globulin Ratio 1.0 Triglycerides 176 H Preliminary micro results at discharge 08/17/19 16:12 Urine Culture - Preliminary Urine - Segura Pseudomonas aeruginosa Gram negative bacillus Gram positive cocci 08/17/19 09:25 Anaerobic Culture - Preliminary Wound - Not Given Tissue Culture - Preliminary Staphylococcus aureus Coagulase negative staph Medical - DS: A/P - Patient/Caregiver Discharge Instructions Activity: as per physical therapy, increase activity as tolerated, other (Wound care per surgery recommendations) Diet: Consistent Carbohydrate Additional Instructions: Continue offloading/postoperative wound care per Dr. Ernst PT OT/nutrition support Decubitus care Follow-up PCP in 7 days I recommend SNF physician to check CBC BMP UA as a posthospital follow-up in 1 week. High protein calorie supplements All meals on chair sitting upright at 90 degrees to prevent aspiration Return to ER if worsening fever chills shortness of breath, diarrhea, bleeding Continue diet and activity as advised Discussed importance of medication adherence Please review medication list with patient prior to discharge Please schedule follow-up with PCP/Providers prior to discharge and provide printouts - Problem Maintenance (1) Pressure ulcer of coccygeal region Status: Chronic - Follow up Plan Disposition: Xfer SNF Prognosis: Fair Rehab Potential: Fair I certify that the patient requires SNF services: Yes Overall status at discharge: patient is progressing back to baseline Medical - DS: Qual - VTE Deep Vein Thrombosis/Pulmonary Embolism Present on Admission: No
[2019-08-20] MEDS: BACITRACIN TOPICAL OINT 15 GM TUBE TOPICAL SCH (09:37)
[2019-08-21] MEDS ORDERED: PNEUMOCOCCAL 23-VAL P-SAC VAC 0.5 ML SYRINGE IM ONE (10:00)
== END 2019-08-20 10:50 | DRG 574 ==
LOC: MEDSUR 04:45
PROVIDERS: ADMIT Plastic Surgery; ATTEND Internal Medicine